=== PATIENT | male | born 1955 | race Caucasian/White ===

== ENCOUNTER → 2018-11-16 | Outpatient (CLI) | payer BC ==
[2018-11-16 10:57] LABS: Anion Gap 8 mmol/L (6-16); Blood Urea Nitrogen 12 mg/dL (8-24); CO2, Blood 27 mmol/L (21-32); Calcium, Blood 8.6 mg/dL (8.5-10.1); Chloride, Blood 103 mmol/L (98-108); Glomerular Filtration Rate >60 (60-); Glucose, Blood 122 mg/dL (70-99); Potassium, Blood 4.5 mmol/L (3.5-5.5); Sodium, Blood 138 mmol/L (136-145)
== END | disposition home or self-care (01) ==
LOC: LAB EV 09:07 → LAB SHORT 09:07
PROVIDERS: Family Medicine
DX: R94.4 Abnormal results of kidney function studies (principal)
CPT/HCPCS: 36415; 80048

== ENCOUNTER 2023-10-31 16:52 | Observation (INO) | payer OTHER ==
[~2023-10-31] VITALS: Ht 182.9 cm; Wt 100.0 kg
[~2023-10-31 16:52] MED LIST: ATOR40TA PO; Amiodarone HCl200 MG PO; DOXAZOSIN MESYLA4 M2 PO; ENTRESTO 24 MG1 EAC3 PO; METO50ER PO; OMEP20ER PO; TAMSULOSIN HCL0.4 M1 PO
[2023-10-31 17:28] LABS: BASOPHILS ABSOLUTE AUTO 0.05 K/mm3 (0.00-0.23); BASOPHILS PERCENT AUTO 1 % (0-2); EOSINOPHILS ABSOLUTE AUTO 0.14 K/mm3 (0.00-0.68); EOSINOPHILS PERCENT AUTO 2 % (0-6); Hematocrit 45.1 % (37.0-53.0); Hemoglobin 14.9 g/dL (13.5-17.5); IMMATURE GRAN ABSOLUTE AUTO 0.02 K/mm3 (0.00-0.10); IMMATURE GRAN PERCENT AUTO 0 % (0-1); LYMPHOCYTES ABSOLUTE AUTO 1.81 K/mm3 (0.84-5.20); LYMPHOCYTES PERCENT AUTO 28 % (21-46); MONOCYTES ABSOLUTE AUTO 0.57 K/mm3 (0.16-1.47); MONOCYTES PERCENT AUTO 9 % (4-13); Mean Corpuscular HGB 30.3 pg (26.0-34.0); Mean Corpuscular Volume 92 fL (80-100); Mean Platelet Volume 10.3 fL (9.1-12.4); NEUTROPHILS ABSOLUTE AUTO 3.96 K/mm3 (1.96-9.15); NEUTROPHILS PERCENT AUTO 61 % (41-73); Platelet Count 287 K/mm3 (150-400); RDW Coefficient Variation 12.8 % (11.7-14.2); RDW Standard Deviation 43.1 fL (35.1-46.3); Red Blood Cell Count 4.92 M/mm3 (4.30-5.90); White Blood Cell Count 6.55 K/mm3 (4.00-11.30)
[2023-10-31 17:44] LABS: Albumin, Blood 3.6 g/dL (3.4-5.0); Albumin/Globulin Ratio 1.2 (0.8-1.8); Bilirubin, Total 1.5 mg/dL (0.1-1.0); Bun/Creatinine Ratio 15.7 (12.0-20.0); Calcium, Blood 8.7 mg/dL (8.5-10.1); Creatinine, Blood 1.27 mg/dL (0.60-1.20); Globulin, Blood 3.1 g/dL (2.2-4.0); Total Protein, Blood 6.7 g/dL (6.4-8.2)
[2023-10-31] MEDS ORDERED: METOPROLOL SUCC25 MG PO (20:18)
[2023-10-31] MEDS ORDERED: Aspirin 81 MG Chew PO ONE (20:20)
[2023-10-31] MEDS ORDERED: Ondansetron 4 MG TAB PO PRN (21:25)
[2023-10-31] MEDS ORDERED: Morphine Sulfate 4 MG/1 ML Injection IV PRN (21:25)
[2023-10-31] MEDS ORDERED: Acetaminophen 325 MG TABLET PO PRN (21:25)
[2023-10-31] MEDS ORDERED: Nitroglycerin 0.4 MG SUBL SL PRN (21:30)
[2023-10-31] MEDS ORDERED: Sacubitril/Valsartan 24 MG-26 MG Tab PO SCH (22:30)
[2023-10-31] MEDS ORDERED: Omeprazole 20 MG CapCR PO SCH (23:05)
[2023-11-01 00:04] VITALS: BP 127/80
--- NOTE | 2023-11-01 05:01 | NUR ---
2230 Pt arrived via [facility] with RN and in attendance. Ambulated ad jordan from [facility] in hallway into bed in room 16. Admission assessment and health history completed. Oriented patient and to room and unit per unit standards. Please see full assessments for additional details. In room, discussing care with pt and , reviewing last nights events, highlighting heart rates throughout the night as low as 36 bpm with occasional pauses of 2-2.5 seconds. Upon review pauses appear to be possibly attributed to brief Mobitiz type 1 episodes. Will review with day shift RN and discuss low heart rate. Pt has denied chest pain through the shift. No further complaints or concerns at this time, will continue to monitor.
[2023-11-01 05:37] LABS: BASOPHILS ABSOLUTE AUTO 0.06 K/mm3 (0.00-0.23); BASOPHILS PERCENT AUTO 1 % (0-2); EOSINOPHILS ABSOLUTE AUTO 0.18 K/mm3 (0.00-0.68); EOSINOPHILS PERCENT AUTO 3 % (0-6); Hematocrit 40.3 % (37.0-53.0); Hemoglobin 13.7 g/dL (13.5-17.5); IMMATURE GRAN ABSOLUTE AUTO 0.02 K/mm3 (0.00-0.10); IMMATURE GRAN PERCENT AUTO 0 % (0-1); LYMPHOCYTES ABSOLUTE AUTO 1.52 K/mm3 (0.84-5.20); LYMPHOCYTES PERCENT AUTO 26 % (21-46); MONOCYTES ABSOLUTE AUTO 0.49 K/mm3 (0.16-1.47); MONOCYTES PERCENT AUTO 9 % (4-13); Mean Corpuscular HGB 30.4 pg (26.0-34.0); Mean Corpuscular Volume 90 fL (80-100); Mean Platelet Volume 10.7 fL (9.1-12.4); NEUTROPHILS ABSOLUTE AUTO 3.49 K/mm3 (1.96-9.15); NEUTROPHILS PERCENT AUTO 61 % (41-73); Platelet Count 274 K/mm3 (150-400); RDW Coefficient Variation 12.7 % (11.7-14.2); RDW Standard Deviation 41.9 fL (35.1-46.3); White Blood Cell Count 5.76 K/mm3 (4.00-11.30)
[2023-11-01] MEDS ORDERED: Omeprazole 20 MG CapCR PO SCH (06:00)
[2023-11-01 06:02] LABS: Albumin, Blood 3.1 g/dL (3.4-5.0); Albumin/Globulin Ratio 1.1 (0.8-1.8); Bun/Creatinine Ratio 22.1 (12.0-20.0); Calcium, Blood 8.3 mg/dL (8.5-10.1); Creatinine, Blood 1.04 mg/dL (0.60-1.20); Globulin, Blood 2.7 g/dL (2.2-4.0); Potassium, Blood 3.8 mmol/L (3.5-5.5); Total Protein, Blood 5.8 g/dL (6.4-8.2)
[2023-11-01 07:58] VITALS: BP 125/71
[2023-11-01] MEDS ORDERED: Doxazosin Mesylate 2 MG Tab PO SCH (09:00)
[2023-11-01] MEDS ORDERED: Enoxaparin 40 MG/0.4 ML SYR SC SCH (09:00)
[2023-11-01] MEDS ORDERED: Amiodarone HCl 200 MG Tab PO SCH (09:00)
[2023-11-01] MEDS ORDERED: Metoprolol Succinate 25 MG TABCR PO SCH (09:00)
--- NOTE | 2023-11-01 10:46 | NUR ---
UPDATE PT WENT DOWN TO IMAGING PORTION OF STRESS TEST AT 1040. AMBULATED TO WHEELCHAIR AFTER USING RESTROOM. PT ON RA SATING HIGH 90'S.
--- NOTE | 2023-11-01 10:49 | NUR ---
PT RETUNED TO FLOOR PT RETURNED TO FLOOR AT 1050. PT ABLE TO AMBULATE FROM WHEELCHAIR TO BED. TOLERATED WELL.
[2023-11-01 10:50] VITALS: BP 126/82
[2023-11-01] MEDS ORDERED: Regadenoson 0.4 MG/5 ML SYRINGE ONE (14:31)
[2023-11-01 15:28] VITALS: BP 123/81
--- NOTE | 2023-11-01 18:28 | NUR ---
SHIFT SUMMARY PT IS A/O X4, USES CALL LIGHT APROPRIATELY AND EXPRESSES COMMANDS. NPO ORDER DISCONTINUED, PT NOW ON REGULAR DIET, PER DR ORDER. HR IS SINUS HORACIO IN THE 50'S. BP'S HAVE BEEN STABLE. PT DID COMPLAIN OF CHEST PRESSURE THAT HE EXPRESSED FEELS LIKE A "SHOCK" WHEN HE WOULD REACH HIST LEFT ARM ACROSS HIS CHEST. HE STATED THAT IT WAS FOR A SECOND AND THEN WOULD GO AWAY. AFTER STRESS TEST PT STATED HE DOES NOT FEEL THAT PAIN ANYMORE. STRESS TEST WAS COMPLETED TODAY, RESULTS HAVE NOT BEEN READ AT THIS TIME. NO EXPRESSION OF SOB OR CHEST TIGHTNESS ON EXERTION. PT IS ON RA SATING HIGH 90'S. PT IS ABLE TO AMBULATE FROM BED TO BATHROOM. HE IS STABLE ON HIS FEET. PT WENT FOR A WAK AROUND THE FLOOR WITH HIS , PT STATED THAT HE TOLERATED WELL. NO GI OR ISSUES. DISCHARGE ORDERS HAVE BEEN PLACED IN PTS CHART, WORKING ON DISCHARGE NOW. PT IS CURRENTLY IN BED, IN ROOM, CALL LIGHT IN REACH.
--- NOTE | 2023-11-01 18:51 | NUR ---
DISCHARGE UPDATE DISCHARGE PACKET GONE OVER WITH PT AND PT AT 1835. PT DISCHARGED AT 1849. PT DECLINED WHEELCHAIR AND REQUESTED TO WALK, TOLERATED WELL. PT PERSONAL BELONGINGS IN BAGS AND WITH PT AND PT'S . DISCHARGE PACKET WITH PT AT TIME OF DISCHARGE.
--- NOTE | 2023-11-01 18:56 | NUR ---
THIS RN REVIEWED AND AGREES WITH STUDENT RN'S NOTES AND CHARTING.
[2023-11-01] MEDS ORDERED: Atorvastatin 40 MG Tab PO SCH (21:00)
[2023-11-02] MEDS ORDERED: Metoprolol Succinate 25 MG TABCR PO SCH (09:00)
== END 2023-11-01 18:49 | disposition home or self-care (01) ==
LOC: ER 16:52 → PCU 16:53
PROVIDERS: Student in an Organized Health Care Education/Training Program; ADMIT Family Medicine
DX: R07.89 Other chest pain (principal); I08.1 Rheumatic disorders of both mitral and tricuspid valves; I11.9 Hypertensive heart disease without heart failure; I48.91 Unspecified atrial fibrillation; F17.220 Nicotine dependence, chewing tobacco, uncomplicated; Z79.899 Other long term (current) drug therapy
CPT/HCPCS: 36415; 71046; 78452; 80053; 84484; 85025; 93005; 93010; 93017; 93306; 94762; 96372; 99285-25; A9270; A9500; G0378; J1650; J2785